=== PATIENT | male | born 1935 | race Caucasian/White ===

== ENCOUNTER 2021-07-04 00:35 | Emergency (ER) | payer OTHER ==
[2021-07-04 01:02] VITALS: BP 187/82; PULSE 83; TEMP 97.2; BMI 26.6
[2021-07-04 02:38] LABS: EPI CELLS 3 /uL (0-25.1); HYALINE CASTS 0 /uL (0-3.1); URINE APPEARANCE CLEAR; URINE BACTERIA 0 /uL (0-1359); URINE BILIRUBIN NEGATIVE (NEGATIVE); URINE COLOR YELLOW; URINE GLUCOSE (UA) NEGATIVE (NEGATIVE); URINE KETONE NEGATIVE (NEGATIVE); URINE LEUK ESTERASE NEGATIVE (NEGATIVE); URINE NITRITE NEGATIVE (NEGATIVE); URINE PROTEIN NEGATIVE (NEGATIVE); URINE RBC 6 /uL (0-23.9); URINE UROBILINOGEN 0.2 mg/dL (0.2-1.0); URINE WBC 4 /uL (0-25.8)
== END 2021-07-04 01:13 | disposition home or self-care (01) ==
LOC: FER 00:35 → SUPCPDRO 00:35 → FER 01:13
DX: R39.198 Other difficulties with micturition (principal)
CPT/HCPCS: 81003; 87086; 99283-25

== ENCOUNTER 2023-05-11 20:26 | Emergency (ER) | payer OTHER ==
[2023-05-11 20:32] VITALS: BP 134/71; PULSE 67; RESP 18; BMI 26.6
== END 2023-05-11 21:41 | disposition home or self-care (01) ==
LOC: FER 20:26
PROC: 0T2BX0Z Change Drainage Device in Bladder, External Approach (ICD-10-PCS; principal; 2023-05-11)
DX: R33.9 Retention of urine, unspecified (principal)
CPT/HCPCS: 81003; 81015; 87086; 99283-25

== ENCOUNTER 2023-06-13 04:37 | Day surgery (SDC) | payer OTHER ==
[2023-06-11 16:02] VITALS: BMI 29.9
[2023-06-13] MEDS ORDERED: FENTANYL CITRATE/PF 50 MCG/ML VIAL ONE ×2 (14:34→16:05)
[2023-06-13] MEDS ORDERED: PROPOFOL 20 ML ONE (14:34)
[2023-06-13] MEDS ORDERED: SODIUM CHLORIDE 0.9% P/F 10 ML VIAL IJ ONE (14:35)
[2023-06-13] MEDS ORDERED: LIDOCAINE HCL/PF 2% SDV 5ML VIAL ONE (14:35)
[2023-06-13] MEDS ORDERED: ceFAZolin SODIUM 1 GM VIAL ONE (14:35)
[2023-06-13] MEDS ORDERED: ACETAMINOPHEN 1000 MG/100 ML BAG IVPB ONE ×2 (14:37→15:51)
[2023-06-13] MEDS ORDERED: DEXTROSE 5%-0.45% SALINE 1,000 ML IV SCH (14:45)
[2023-06-13] MEDS ORDERED: ceFAZolin SODIUM 1 GM VIAL IVPB ONE (14:58)
[2023-06-13] MEDS ORDERED: ONDANSETRON 4 MG/2 ML VIAL ONE (15:02)
[2023-06-13] MEDS ORDERED: DEXAMETHASONE SOD PHOSPHATE 4 MG/1 ML VIAL ONE (15:02)
[2023-06-13] MEDS ORDERED: PROMETHAZINE HCL 25 MG/1 ML VIAL IVPB PRN (15:50)
[2023-06-13] MEDS ORDERED: ONDANSETRON 4 MG/2 ML VIAL IVPUSH PRN (15:50)
[2023-06-13] MEDS ORDERED: ACETAMINOPHEN INJECTION 100 ML IVPB ONE (15:54)
[2023-06-13] MEDS ORDERED: SODIUM CHLORIDE 1,000 ML IV SCH (16:00)
[2023-06-13] MEDS ORDERED: LACTATED RINGERS SOLUTION 1,000 ML IV SCH (16:00)
[2023-06-13 16:26] VITALS: TEMP 97.1
[2023-06-13 18:59] VITALS: BP 93/42; PULSE 50; RESP 18
== END 2023-06-13 19:23 | disposition home or self-care (01) ==
LOC: JASU-SURG 04:37
PROVIDERS: ATTEND Urology
PROC: 0VT08ZZ Resection of Prostate, Via Natural or Artificial Opening Endoscopic (ICD-10-PCS; principal; 2023-06-13 14:30)
DX: N40.1 Benign prostatic hyperplasia with lower urinary tract symptoms (principal); R33.8 Other retention of urine
CPT/HCPCS: 94760

== ENCOUNTER 2023-10-13 12:20 | Emergency (ER) | payer OTHER ==
[2023-10-13 12:40] VITALS: BMI 28.3
[2023-10-13 13:38] LABS: HEMATOCRIT 30.3 % (35.4-49); HEMOGLOBIN 9.7 G/dL (11.7-16.9); MCH 29.9 pg (25.7-33.7); MCHC 31.9 g/dl (32.0-35.9); MEAN CELL VOLUME 93.8 fl (80-96); PLATELET COUNT 124.8 10^3/uL (134-434); RBC 3.23 10^6/uL (4.00-5.60); RDW 18.3 % (11.9-15.9); WHITE BLOOD COUNT 7.2 10^3/uL (4.0-10.8)
[2023-10-13 13:58] LABS: INR 1.97 (0.83-1.09); PROTHROMBIN TIME (PATIENT) 22.7 SEC (9.7-13.0)
[2023-10-13 14:01] LABS: ACTIVATED PTT 35.6 SECONDS (25.2-36.5); ALBUMIN 3.8 g/dl (3.4-5.0); CALCIUM 8.9 mg/dl (8.5-10.1); CREATININE 1.8 mg/dl (0.6-1.3); POTASSIUM 3.8 mmol/L (3.5-5.1); TOT PROT 6.1 g/dl (6.4-8.2)
[2023-10-13 14:49] LABS: ANISOCYTOSIS 1+; TARGET CELLS 2+
[2023-10-13 14:50] LABS: OVALOCYTE 2+
[2023-10-13] MEDS: SODIUM CHLORIDE FOR INHALATION 3 ML VIAL.NEB IH ONE (15:40)
[2023-10-13] MEDS ORDERED: ACETAMINOPHEN 325 MG TABLET (FP) ONE (15:49)
[2023-10-13] MEDS ORDERED: DIPHTH,PERTUSS(ACELL),TET 0.5 ML DISP.SYRIN IM ONE (15:49)
[2023-10-13 16:29] VITALS: BP 115/64; PULSE 66; RESP 18; TEMP 97.7
== END 2023-10-13 16:45 | disposition home or self-care (01) ==
LOC: FER 12:20
DX: J10.1 Influenza due to other identified influenza virus with other respiratory manifestations (principal); R05.9 Cough, unspecified; R06.00 Dyspnea, unspecified; Z20.822 Contact with and (suspected) exposure to COVID-19
CPT/HCPCS: 0241U-QW; 36415; 71046-TC-FY; 80053; 83880; 84484; 85025; 85610; 85730; 93005; 99285-25